=== PATIENT | male | born 1995 | race Caucasian/White ===

== ENCOUNTER 2017-04-26 19:44 | Emergency (ER) | payer OTHER ==
[~2017-04-26] VITALS: Ht 185.4 cm; Wt 104.1 kg
[2017-04-26 19:49] VITALS: Ht 185.4 cm; Wt 104.1 kg
[2017-04-26] MEDS ORDERED: CEFAZOLIN SOD 1000MG/55 ML D5W IV STA (20:29)
[2017-04-26 20:49] LABS: BASO % 0.3 %; BASO ABS # 0.03 K/uL (0-0.2); COMPLETE YES; EOS % 4.1 %; HEMATOCRIT 49.3 % (42-52); IG% 0.3 %; LYMPH % 17.7 %; LYMPH ABS # 1.85 K/uL (1.2-3.4); MEAN CELL VOLUME 85.1 fL (80-100); MEAN CORPUSCULAR HEMOGLOBIN 30.2 pg (25-34); MEAN CORPUSCULAR HGB CONC 35.5 g/dl (32-36); MEAN PLATELET VOLUME 11.4 fL (7.4-10.4); MONO % 9.1 %; NEUT % 68.5 %; PLATELET COUNT 231 K/uL (130-400); RED BLOOD COUNT 5.79 M/uL (4.7-6.1); WHITE BLOOD COUNT 10.45 K/uL (4.8-10.8)
[2017-04-26 21:07] LABS: BUN/CREATININE RATIO 12.2 (10-20); CALCIUM 8.8 mg/dl (8.5-10.1); POTASSIUM 4.1 mmol/L (3.5-5.1)
--- NOTE | 2017-04-26 21:14 | DIAGNOSTIC IMAGING REPORT ---
LEFT TIBIA/FIBULA 2 VIEWS ROUTINE CLINICAL HISTORY: Left lower leg injury. COMPARISON STUDY: None. FINDINGS: No fracture or dislocation within the left tibia or fibula. Lateral soft tissue swelling within the mid to distal lower leg. No radiopaque foreign bodies. IMPRESSION: Lateral soft tissue swelling. No fractures within the left lower leg. Electronically signed by: Perry Jordan M.D. 04/26/2017 9:13 PM Dictated Date/Time: 04/26/2017 9:11 PM
[2017-04-26 21:47] VITALS: TEMP 37
[2017-04-26] MEDS ORDERED: CEPH500C PO (22:07)
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
[2017-04-26 22:56] VITALS: BP 132/92; PULSE 88; O2SAT 98
== END 2017-04-26 22:56 | disposition home or self-care (01) ==
LOC: C.EDB 19:45 → C.EDC 22:56
DX: L03.116 Cellulitis of left lower limb (principal); F17.200 Nicotine dependence, unspecified, uncomplicated